=== PATIENT | male | born 1965 | race Caucasian/White ===

== ENCOUNTER → 2018-07-10 | Outpatient (CLI) | payer BC ==
--- NOTE | 2018-07-10 16:29 | MR ---
EXAMINATION TYPE: MR knee RT wo con DATE OF EXAM: 07/10/2018 COMPARISON: Outside right knee x-ray June 29, 2018 HISTORY: Pain in right knee per order. Pain for little over a year per patient. TECHNIQUE: Multiplanar, multisequence images of the knee is performed without IV contrast. FINDINGS: MEDIAL MENISCUS: Oblique increased signal posterior horn as more granular-shaped component centrally sagittal image 8 abutting the inferior articular surface. There is more faint horizontal increased si gnal anterior horn does not extend to articular surface. LATERAL MENISCUS: Anterior and posterior horns are intact without tear. CRUCIATE LIGAMENTS: The anterior and posterior cruciate ligaments are intact and unremarkable. COLLATERAL LIGAMENTS: The medial collateral ligament and lateral collateral ligament complex are inta ct. Mild fluid signal surrounds medial collateral ligament. EXTENSOR MECHANISM: Visualized quadriceps and patellar tendons are intact. EFFUSION: No significant suprapatellar joint effusion. POPLITEAL CYST: There is multi septated popliteal/huitron cyst measuring 5.7 cm long axis sagittal imag e 7. TRICOMPARTMENT SPACES: Mild to moderate narrowing with mild spurring patellofemoral compartment is se en. Mild to moderate narrowing medial tibiofemoral compartment is present. There is mild spurring med ial and lateral tibiofemoral compartments. CARTILAGE: No significant chondromalacia patella. Some thinning of articular cartilage medial tibial femoral compartment is noted. No full-thickness loss is seen. BONE MARROW SIGNAL: No focal abnormal marrow signal is appreciated. OTHER: Moderate subcutaneous infrapatellar fluid is seen. IMPRESSION: 1. Mild to moderate tricompartment degenerative changes most prominent patellofemoral and medial tibi ofemoral compartments as detailed above. 2. Mild MCL sprain injury. 3. Full-thickness tear posterior horn of medial meniscus extending to the central body. Intrasubstanc e tearing anterior horn is suspected. 4. Moderate size multiseptated popliteal cyst.
== END ==
LOC: RADMRIMAIN 15:45
PROVIDERS: ATTEND Orthopaedic Surgery
DX: M17.11 Unilateral primary osteoarthritis, right knee (principal); S83.411A Sprain of medial collateral ligament of right knee, initial encounter; S83.241A Other tear of medial meniscus, current injury, right knee, initial encounter; M71.21 Synovial cyst of popliteal space [Baker], right knee

== ENCOUNTER → 2018-08-18 | Outpatient (CLI) | payer BC ==
[2018-08-18 11:57] LABS: Basophils # (A) 0.1 k/uL (0-0.2); Basophils % (A) 1 %; Eosinophils # (A) 0.2 k/uL (0-0.7); Eosinophils % (A) 3 %; HCT 44.9 % (39.0-53.0); HGB 14.5 gm/dL (13.0-17.5); Lymphocytes # (A) 2.4 k/uL (1.0-4.8); Lymphocytes % (A) 32 %; MCH 29.9 pg (25.0-35.0); MCHC 32.2 g/dL (31.0-37.0); MCV 92.8 fL (80.0-100.0); Monocytes # (A) 0.4 k/uL (0-1.0); Monocytes % (A) 6 %; Neutrophils # (A) 4.3 k/uL (1.3-7.7); Neutrophils % (A) 56 %; Platelet Count 295 k/uL (150-450); RBC 4.84 m/uL (4.30-5.90); RDW 13.8 % (11.5-15.5); WBC 7.6 k/uL (3.8-10.6)
[2018-08-18 12:07] LABS: Potassium 5.2 mmol/L (3.5-5.1)
== END | disposition home or self-care (01) ==
LOC: LABPAT 11:01
PROVIDERS: ATTEND Orthopaedic Surgery
DX: Z01.818 Encounter for other preprocedural examination (principal); M23.91 Unspecified internal derangement of right knee; Z01.812 Encounter for preprocedural laboratory examination
CPT/HCPCS: 36415; 80051; 85025; 93005

== ENCOUNTER 2018-08-30 12:50 | Day surgery (SDC) | payer BC ==
[2018-08-27 12:01] VITALS: BMI 38.3
--- NOTE | 2018-08-29 17:25 | HP ---
HISTORY AND PHYSICAL DATE OF SURGERY: 08/30/2018 Will Prado is a 53-year-old patient seen with progressive right knee pain. We discussed treatment options. He elected to proceed with right knee arthroscopy. Consent regarding the procedure was obtained. PAST MEDICAL HISTORY: Hypertension, hyperlipidemia. PAST SURGICAL HISTORY: Noncontributory. DAILY MEDICATIONS: 1. Ibuprofen. 2. Lisinopril. 3. Lovastatin. ALLERGIES: NONE. SOCIAL HISTORY: He denies current tobacco use. PHYSICAL EVALUATION OF THE RIGHT KNEE: Range of motion is 0 to 130 degrees. Mild effusion. Tenderness, medial joint line. Positive medial Nell's. Ligaments stable. Hip rotation without pain. Distal neurovascular exam intact. RADIOGRAPHS: Right knee radiographs revealed mild osteoarthritis. MRI of the right knee revealed medial meniscal tear. IMPRESSION: Internal derangement, right knee, with medial meniscal tear. PLAN: Right knee arthroscopy with partial meniscectomy and debridement. MMODL / IJN: [id number] /
[~2018-08-30 12:50] MED LIST: DEXAMETHASONE SOD PHOSPHATE 10 MG/ML 1 ML VIAL IV ONE; HYDROmorphone 0.5 MG/0.5 ML SYRINGE IVP PRN; LACTATED RINGERS 1,000 ML IV SCH; LIDOCAINE 1% 20 ML VIAL (10MG/ML) FOR IV START INTRADERMA PRN; MIDAZOLAM 2 MG/2 ML VIAL IV PRN; ONDANSETRON 4 MG/2 ML VIAL IVP ONE; SCOPOLAMINE 1.5MG/72HR PATCH TRANSDERM ONE; ceFAZolin IN SWFI 2 GM/20 ML SYRINGE IVP ONE
[2018-08-30] MEDS ORDERED: LIDOCAINE 1% INJ 10MG/ML (20 ML MDV) ONE (14:02)
[2018-08-30] MEDS ORDERED: MIDAZOLAM 2 MG/2 ML VIAL ONE (14:02)
[2018-08-30] MEDS ORDERED: fentaNYL (PF) 50 MCG/ML 2 ML AMP ONE (14:02)
[2018-08-30] MEDS ORDERED: PROPOFOL 10 MG/ML 20 ML VIAL IV ONE (14:02)
[2018-08-30] MEDS ORDERED: BUPIVACAINE (PF) 0.5% 30 ML VIAL SQ ONE (14:28)
--- NOTE | 2018-08-30 14:59 | P.OP ---
Date of Procedure: 08/30/18 Preoperative Diagnosis: Internal derangement right knee Postoperative Diagnosis: 1. Medial meniscal tear right knee 2. Reactive synovitis medial, lateral and suprapatellar compartments right knee Procedure(s) Performed: 1. Arthroscopic partial medial meniscectomy right knee 2. Arthroscopic partial synovectomy medial, lateral and suprapatellar compartments right knee Anesthesia: FRANSISCOA, local Surgeon: Raj Sena Estimated Blood Loss (ml): 8 Pathology: none sent Condition: stable Disposition: PACU Indications for Procedure: 53-year-old patient seen with progressive right knee pain. After treatment options were discussed, he elected to proceed with arthroscopy. Operative Findings: See description of procedure Description of Procedure: Patient was taken to the operative suite. Patient underwent a general anes thetic by the department of anesthesia. Patient was given preoperative antibiotics. The right lower extremity was placed in a well-padded arthroscopic leg bauman. The right leg was prepped and draped in the normal sterile orthopedic fashion. A lateral parapatellar and suprapatellar incision was made. Trochars were inserted. Arthroscopy was initiated. Suprapatellar pouch heel diffuse thick reactive synovitis. The patellofemoral joint appeared to articulate congruently. There as no chondromalacia present. The scope was guided into the medial gutter. No loose bodies or plica were identified. The scope was then guided into the medial compartment. A medial parapatellar incision was made. Trocar inserted followed by probe. There was a complex tear involving the posterior horn of the medial meniscus. There were mild grade 1 chondromalacia changes of the medial compartment. There was thick reactive synovitis anteriorly. I performed a partial medial meniscectomy down to stable tissue. I performed a partial synovectomy decompressing the reactive synovitis. The residual meniscus was stable. There was good decompression of the synovitis. Scope and probe were then guided into the intercondylar notch. Cruciates were identified, probed and found to be stable. The scope and probe were then guided into lateral compartment. The lateral meniscus was probed and found to be stable. There was some reactive synovitis anteriorly. No loose bodies. I performed a partial synovectomy. There was good decompression of synovitis. The scope was in guided back into the suprapatellar compartment. I introduced a motorized shaver into the super compartment. I debrided some piecemeal fragments of meniscus I encountered. I performed a partial synovectomy decompressing the reactive synovitis. The shaver was removed. I took one more look on the entire knee, no residual debris. Instruments were now removed from the joint. The joint was infiltrated with .25% Marcaine. Steri- Strips were applied to the portal sites. Sterile dressings were applied. The patient was placed into a JEFFREY hose. No tourniquet was utilized. The patient was awakened, transferred to a bed and taken to recovery stable satisfactory condition.
[2018-08-30 15:09] VITALS: TEMP 97.7
[2018-08-30] MEDS ORDERED: KETOROLAC 30 MG/ML 1 ML VIAL IVP ONE (15:15)
[2018-08-30 15:34] VITALS: RESP 18
[2018-08-30 16:01] VITALS: BP 130/78; PULSE 67
== END 2018-08-30 16:03 | disposition home or self-care (01) ==
LOC: OR 12:50
PROVIDERS: ATTEND Orthopaedic Surgery
DX: S83.241A Other tear of medial meniscus, current injury, right knee, initial encounter (principal); X58.XXXA Exposure to other specified factors, initial encounter; M65.861 Other synovitis and tenosynovitis, right lower leg; M94.261 Chondromalacia, right knee; I10 Essential (primary) hypertension; E78.5 Hyperlipidemia, unspecified; K21.9 Gastro-esophageal reflux disease without esophagitis; R06.83 Snoring; Z79.1 Long term (current) use of non-steroidal anti-inflammatories (NSAID); Z79.899 Other long term (current) drug therapy
CPT/HCPCS: 29881; 29876; J2250; J1100; J2405; J2001; J3010; J1885; J2704; J0690

== ENCOUNTER 2018-09-25 08:59 | Day surgery (SDC) | payer BC ==
[2018-09-20 11:32] VITALS: BMI 37.5
[~2018-09-25 08:59] MED LIST changes: -DEXAMETHASONE SOD PHOSPHATE 10 MG/ML 1 ML VIAL IV ONE; -HYDROmorphone 0.5 MG/0.5 ML SYRINGE IVP PRN; -MIDAZOLAM 2 MG/2 ML VIAL IV PRN; -ONDANSETRON 4 MG/2 ML VIAL IVP ONE; -SCOPOLAMINE 1.5MG/72HR PATCH TRANSDERM ONE; -ceFAZolin IN SWFI 2 GM/20 ML SYRINGE IVP ONE
[2018-09-25 09:37] VITALS: RESP 16; TEMP 97.8
[2018-09-25] MEDS ORDERED: PROPOFOL 10 MG/ML 20 ML VIAL IV ONE (10:43)
--- NOTE | 2018-09-25 11:20 | P.PCN ---
Date of Procedure: 09/25/18 Procedure(s) Performed: Procedure: Total colonoscopy with polypectomy. Preoperative diagnosis: Screening for neoplasia, patient has family history of colon cancer in his sister. Postoperative diagnosis: 1. Sigmoid diverticulosis with no evidence of acute diverticulitis or strictures. 2. One small polyp in the right colon snared. Preparation: HalfLytely prep. Sedation: Was provided by anesthesia. Brief clinical history: The patient is a 53-year-old male who is scheduled for this evaluation for screening for neoplasia because of family history of colon cancer in his sister. The patient has no abdominal complaints, bleeding or anemia. This would be his first colonoscopy. Procedure: With the patient on his left lateral decubitus position and after informed consent and adequate sedation, the perianal area was inspected and it did not show any fissures or fistulas. There were no masses felt on digital rectal examination. The Olympus CFH 190L video colonoscope was then inserted in the rectum in the usual fashion and advanced to the cecum. There was a small polyp in the right colon which I snared and retrieved by suction but there were no large polyps or cancer. Multiple diverticular orifices were seen scattered in the sigmoid with no evidence of acute colitis or strictures. The mucosa appeared healthy. I retroflexed the endoscope in the rectum before the endoscope was withdrawn. The patient tolerated the procedure well. Plan: The patient was reassured. Discussed dietary measures. He will follow up with you as planned and I recommended repeat exam in 5 years.
[2018-09-25 11:35] VITALS: BP 123/83; PULSE 71
== END 2018-09-25 12:14 | disposition home or self-care (01) ==
LOC: ORWHC2ENDO 08:59
DX: Z12.11 Encounter for screening for malignant neoplasm of colon (principal); D12.2 Benign neoplasm of ascending colon; K57.30 Diverticulosis of large intestine without perforation or abscess without bleeding; Z80.0 Family history of malignant neoplasm of digestive organs; I10 Essential (primary) hypertension; E78.5 Hyperlipidemia, unspecified; Z79.1 Long term (current) use of non-steroidal anti-inflammatories (NSAID); Z79.899 Other long term (current) drug therapy
CPT/HCPCS: 88305; 45385; J2704

== ENCOUNTER 2019-12-22 19:54 | Emergency (ER) | payer BC ==
[2019-12-22 20:03] VITALS: BP 161/54; PULSE 94; RESP 18; TEMP 98.7
[2019-12-22] MEDS ORDERED: FAMOTIDINE 20 MG/2 ML VIAL IV STA (20:05)
[2019-12-22] MEDS ORDERED: SODIUM CHLORIDE 0.9% 500 ML 500 ML IV ONE (20:05)
--- NOTE | 2019-12-22 21:13 | ED ---
Allergic Reaction HPI - General Chief complaint: Allergic Reaction Stated complaint: Bee Sting - Sent by [facility] Time Seen by Provider: 12/22/19 20:05 Source: patient Mode of arrival: ambulatory Limitations: no limitations - History of Present Illness Initial Comments: 84-year-old male presents today for chief complaint of multiple bee stings he stated multiple bee stings of the upper extremities he states this happened another time this summer however he did not have as severe reaction he states after the bee sting he felt lightheaded. He states he felt like his tongue was swelling he took 50 mg of Benadryl and then presented urgent care where he is given 125 mg IM of Solu-Medrol. Patient states he was told to come to the emergency department. Patient denies any worsening tongue swelling difficulty breathing and wheezing nausea or vomiting.area abdominal pain rash difficulty swallowing or trouble tolerating oral secretions. Patient denies additional complaints and appears well on arrival in no distress. No known allergy to bees. - Related Data Home Medications Medication Instructions Recorded Confirmed Fish Oil/Dha/Epa [Fish Oil 1,200 1 each PO DAILY 08/27/18 09/25/18 mg Fish Oil] Ibuprofen [Motrin] 400 mg PO Q8HR PRN 08/27/18 09/25/18 Lovastatin [Mevacor] 10 mg PO HS 08/27/18 09/25/18 lisinopriL [Zestril] 5 mg PO DAILY 08/27/18 09/25/18 Previous Rx's Medication Instructions Recorded EPINEPHrine (Auto Inject) [Epipen] 0.3 mg IM ONCE PRN 2 Days #2 pen 12/22/19 predniSONE 50 mg PO DAILY 4 Days #4 tab 12/22/19 Allergies Allergy/AdvReac Type Severity Reaction Status Date / Time No Known Allergies Allergy Verified 12/22/19 20:03 Review of Systems ROS Statement: Those systems with pertinent positive or pertinent negative responses have been documented in the HPI. ROS Other: All systems not noted in ROS Statement are negative. Past Medical History Past Medical History: Hyperlipidemia, Hypertension History of Any Multi-Drug Resistant Organisms: None Reported Past Surgical History: Orthopedic Surgery Additional Past Surgical History / Comment(s): RT KNEE SCOPE. CYST REMOVED FROM BACK Past Anesthesia/Blood Transfusion Reactions: No Reported Reaction Past Psychological History: No Psychological Hx Reported Smoking Status: Former smoker Past Alcohol Use History: Daily Past Drug Use History: None Reported - Past Family History Sister(s) Family Medical History: Cancer Mother Sister(s) Family Medical History: Cancer Additional Family Medical History / Comment(s): 1-THROAT CANCER. 2.COLON CANCER General Exam - General Exam Comments Initial Comments: General: The patient is awake and alert, in no distress, and does not appear acutely ill. Eye: Pupils are equal, round and reactive to light, extra-ocular movements are intact. No nystagmus. There is normal conjunctiva bilaterally. No signs of icterus. Ears, nose, mouth and throat: There are moist mucous membranes and no oral lesions. Tongue mildly swollen, or tripoding drooling patient tolerated oral secretions Neck: The neck is supple, there is no tenderness or JVD. Cardiovascular: There is a regular rate and rhythm. No murmur, rub or gallop is appreciated. Respiratory: Lungs are clear to auscultation, respirations are non-labored, breath sounds are equal. No wheezes, stridor, rales, or rhonchi. Gastrointestinal: Soft, non-distended, non-tender abdomen without masses or organomegaly noted. There is no rebound or guarding present. Musculoskeletal: Normal ROM, no tenderness. Strength 5/5. Sensation intact. Pulses equal bilaterally 2+. Neurological: A&O x 3. CN II-XII intact, There are no obvious motor or sensory deficits. Coordination appears grossly intact. Speech is normal. Skin: Skin is warm and dry and no rashes or lesions are noted. No urticaria, some scant localized redness in no particular pattern on the forearms b/ Psychiatric: Cooperative, appropriate mood & affect, normal judgment. Limitations: no limitations Course Vital Signs 12/22/19 12/22/19 20:00 21:19 Temperature 98.7 F Pulse Rate 94 Respiratory 18 18 Rate Blood Pressure 161/54 O2 Sat by Pulse 99 100 Oximetry Medical Decision Making - Medical Decision Making 54yo male on arrival states symptoms better but tongue still swollen denies increase. does not appear in distress. tongue i swollen mildly on exam. Patient given pepcid as he was already givne solumedtrol and benadryl prior to arrival. Given IVF monitored. Patient case discussed with Dr. hansen who recommended d/c with steroids, strict return parameters as well as an epi pen. educated patietn on appropriate use of the epi pen. pt verbalized understanding prefers and states he is comfortable wtih discharge. Disposition Clinical Impression: Angioedema, Bee sting reaction Disposition: HOME SELF-CARE Condition: Good Instructions (If sedation given, give patient instructions): Anaphylaxis (ED) Additional Instructions: Please use medication as discussed. Please follow-up with family doctor in the next 2 days. If you use the epi pen in future MUST PRESENT TO ER AFTER. IF swelling increased IMMEDIATE return to ER (call EMS) Please return to emergency room if the symptoms increase or worsen or for any other concerns. Prescriptions: EPINEPHrine (Auto Inject) [Epipen] 0.3 mg IM ONCE PRN 2 Days #2 pen PRN Reason: Anaphylaxis predniSONE 50 mg PO DAILY 4 Days #4 tab Is patient prescribed a controlled substance at d/c from ED?: No Referrals: Geremias Leal MD [Primary Care Provider] - 1-2 days Time of Disposition: 21:13
== END 2019-12-22 21:20 | disposition home or self-care (01) ==
LOC: EC 19:54
DX: T78.3XXA Angioneurotic edema, initial encounter (principal); T63.441A Toxic effect of venom of bees, accidental (unintentional), initial encounter; I10 Essential (primary) hypertension; E78.5 Hyperlipidemia, unspecified; Z79.899 Other long term (current) drug therapy; Z87.891 Personal history of nicotine dependence
CPT/HCPCS: 96361; 96374; 99283

== ENCOUNTER 2023-05-05 11:30 | Day surgery (SDC) | payer BC ==
[2023-05-02 10:23] VITALS: BMI 35.2
[~2023-05-05 11:30] MED LIST changes: -LACTATED RINGERS 1,000 ML IV SCH; +LIDOCAINE 1% (10MG/ML) FOR IV START INTRADERMA PRN; -LIDOCAINE 1% 20 ML VIAL (10MG/ML) FOR IV START INTRADERMA PRN
[2023-05-05] MEDS: LACTATED RINGERS 1,000 ML IV SCH ×2 (12:44→13:50)
[2023-05-05] MEDS ORDERED: PROPOFOL 10 MG/ML 20 ML VIAL IV ONE (13:51)
--- NOTE | 2023-05-05 14:09 | P.PCN ---
Date of Procedure: 05/05/23 Procedure(s) Performed: BRIEF HISTORY: Patient is a 57-year-old pleasant white male scheduled for an elective colonoscopy as a part of screening for colon cancer and family history of colon cancer. His sister was diagnosed with colon cancer at age 60. PROCEDURE PERFORMED: Colonoscopy with snare polypectomy. PREOPERATIVE DIAGNOSIS: Screening for colon cancer and family history of colon cancer. IV sedation per Anesthesia. PROCEDURE: After informed consent was obtained, the patient, was brought into the endoscopy unit. IV sedation was administered by Anesthesia under continuous monitoring. Digital rectal examination was normal. Initially the Olympus CF-160 flexible video colonoscope was then inserted in the rectum, gradually advanced into the cecum without any difficulty. Careful examination was performed as the scope was gradually being withdrawn. Ileocecal valve and the appendiceal orifice were visualized and appeared normal. Prep was fair. Mucosa of the cecum, as a millimeter and 5 mm polyp both of which were removed by snare polypectomy. In the transverse colon there was a 3 mm polyp that was removed by snare polypectomy. Rest of the ascending colon, transverse colon, descending colon, sigmoid colon, and rectum appeared normal. Retroflexion was performed in the rectum and no lesions were seen. The patient tolerated the procedure well. IMPRESSION: 3 mm and 5 mm cecal polyp status post cold snare polypectomy 3 mm transverse colon polyp status post cold snare polypectomy Scattered sigmoid diverticulosis Recommendations. Findings of this examination were discussed with the patient as well as his family. He was advised to follow with the biopsy results and have a repeat colonoscopy in 5 years because of the family history of colon cancer..
[2023-05-05 14:27] VITALS: RESP 16
[2023-05-05 14:52] VITALS: BP 145/90; PULSE 68
== END 2023-05-05 14:43 | disposition home or self-care (01) ==
LOC: ORWHC2ENDO 11:30
PROVIDERS: ATTEND Internal Medicine Gastroenterology
DX: Z12.11 Encounter for screening for malignant neoplasm of colon (principal); D12.0 Benign neoplasm of cecum; K57.30 Diverticulosis of large intestine without perforation or abscess without bleeding; Z80.0 Family history of malignant neoplasm of digestive organs
CPT/HCPCS: 88305; 45385; J2704